=== PATIENT | male | born 1955 | race Caucasian/White ===

== ENCOUNTER 2018-06-28 09:47 | Emergency (ER) | payer SELFPAY ==
[~2018-06-28] VITALS: Ht 180.3 cm; Wt 95.0 kg
--- NOTE | 2018-06-28 09:56 | NUR ---
PT. ARRIVES BY [facility] WITH C/O RIGHT HIP PAIN. PT. AWOKE TODAY WITH RIGHT HIP, NO TRAUMA. PT. TOOK 800MG MOTRIN AND WENT BACK TO BED. UPON GETTING UP, PT. HAD CONTINUED SEVERE PAIN AND CALLED [facility]. [facility] G[facility] THE PT. 100 MCG OF F[place]ANYL. IV ACCESS WAS ESTABLISHED IN THE PT.'S LAC. PT.'S 12 LEAD EKG WAS DONE AND PT. WAS PLACED ON THE RESEARCH SCIENTIST. SATS ARE 98%. DISCUSSED PAIN MANAGEMENT WITH THE PROVIDER CHEN Miranda. PT. HAS THE SIDERAILS UP X 2 AND THE CALL LIGHT IS IN PLACE. REPORT TO THE PRIMARY CARE RN MERT.
[2018-06-28] MEDS ORDERED: ONDANSETRON 2MG/ML, 2ML ONE (09:57)
[2018-06-28] MEDS ORDERED: MORPHINE SULFATE 4 MG/ML, 1ML ONE ×2 (09:58→10:20)
[2018-06-28] MEDS ORDERED: ONDANSETRON 2MG/ML, 2ML IVPush ONE (10:00)
[2018-06-28] MEDS ORDERED: SODIUM CHLORIDE FLUSH 10ML SYR IVF ONE (10:00)
[2018-06-28] MEDS: MORPHINE SULFATE 4 MG/ML, 1ML IVPush PRN ×2 (10:03→10:22)
--- NOTE | 2018-06-28 10:12 | NUR ---
MEDICATED WITH MORPHINE AND ZOFRAN PER ORDERS, PT SCREAMING AND YELLING. INSTRUCTED TO DEEP BREATH EXERCISES. PT PLACED ON SHINGLE TRIMMER, SINUS, CALMER AFTER MEDICATION GIVEN. TO X RAY VIA GURNEY
--- NOTE | 2018-06-28 10:22 | NUR ---
PT BACK FROM XRAY SCREAMING AND MOVING AROUND. RE-MEDICATED PER ORDERS.
[2018-06-28] MEDS ORDERED: HYDROmorphone 2 MG/ML, 1ML ONE ×3 (10:33→11:58)
[2018-06-28 10:36] LABS: BASOPHILS # (AUTO) 0.05 x10^3/uL (0-0.1); BASOPHILS % (AUTO) 1 % (0-1); EOSINOPHILS # (AUTO) 0.26 x10^3/uL (0-0.4); EOSINOPHILS % (AUTO) 3 % (1-7); LYMPHOCYTES % (AUTO) 12 % (22-44); MD NO; MEAN CORPUSCULAR HEMOGLOBIN 31.7 pg (27.5-34.5); MEAN CORPUSCULAR HGB CONC 34.5 g/dL (33.2-36.2); MEAN CORPUSCULAR VOLUME 91.9 fL (81-97); MEAN PLATELET VOLUME 8.3 fL (7.4-10.4); MONOCYTES # (AUTO) 0.79 x10^3/uL (0.2-0.8); MONOCYTES % (AUTO) 9 % (2-9); NEUTROPHILS # (AUTO) 6.63 x10^3/uL (1.8-6.8); NEUTROPHILS % (AUTO) 75 % (42-75); PLATELET COUNT 359 x10^3/uL (130-400); RED BLOOD COUNT 4.67 x10^6/uL (4.38-5.82); RED CELL DISTRIBUTION WIDTH 13.6 % (9.4-14.8)
[2018-06-28] MEDS ORDERED: LOSA100T14 PO (10:39)
--- NOTE | 2018-06-28 10:39 | NUR ---
PT SCREAMING, AND MOVING AROUND,STATES PAIN IS STILL 10/[address] LAI ORDERS MEDICATED WITH DILAUDID.
[2018-06-28 10:46] LABS: ALBUMIN 3.6 g/dL (3.4-5.0); ANION GAP 11 mmol/L (5-15); CHLORIDE 105 mmol/L (98-107); CREATININE 0.96 mg/dL (0.7-1.3)
[2018-06-28 10:48] LABS: CREATINE KINASE, TOTAL 247 U/L (39-308)
[2018-06-28] MEDS ORDERED: HYDROmorphone 2 MG/ML, 1ML IV ONE (11:00)
--- NOTE | 2018-06-28 11:07 | NUR ---
PT CONTINOUS TO HAVE PAIN 12/04 [address] LAI ORDER FOR ADDITIONAL PAIN MEDICATION
[2018-06-28] MEDS: HYDROmorphone 2 MG/ML, 1ML IVPush PRN ×2 (11:10→12:03)
--- NOTE | 2018-06-28 11:21 | NUR ---
PT WATCHING TV, STATES PAIN IS STILL 10/10, NOT SCREAMING OR MOVING AROUND. PULSE OX ON AT 88%, PLACED ON 2 LNC, CYCLE BP, WINDSCREEN FITTER SINUS
--- NOTE | 2018-06-28 11:55 | NUR ---
TASK RN: LATE ENTRY FOR 1145: STATING PT HAS TO USE RESTROOM. PT GIVEN URINAL. PT RUDE AND STATES "OH GOD!! ARE YOU KIDDING ME!!" PT EDUCATED REGARDING THE USE FOR A URINAL.
[2018-06-28] MEDS ORDERED: OMNIPAQUE 350 MG/ML, 100ML BOTTLE ONE (11:56)
--- NOTE | 2018-06-28 12:02 | NUR ---
PT C/O OF INCREASE PAIN OVER 10/10, REMEDICATED WITH DILAUDID PER ORDERS.
--- NOTE | 2018-06-28 12:47 | NUR ---
OBTAINED URINE FOR UA SENT TO LAB. PT STATES PAIN IS "BETTER. NOW I AM SLEEPY". WATER GIVEN VERBALIZED NO OTHER NEEDS, AT BS
[2018-06-28 13:13] LABS: MICROSCOPIC AUTO
[2018-06-28 13:15] LABS: CULTURE INDICATED? NO
[2018-06-28 13:31] VITALS: BP 148/71
--- NOTE | 2018-06-28 13:48 | NUR ---
Patient/Caregiver given discharge instructions and they have confirmed that they understand the instructions. Patient ambulatory with steady gait. Patient signed out AMA.
[2018-06-28 14:08] LABS: HCT (SEDRATE) 42.9 % (39.2-51.8)
== END 2018-06-28 13:49 | disposition left against medical advice (07) ==
LOC: ED 11:33
DX: M25.551 Pain in right hip (principal); F17.210 Nicotine dependence, cigarettes, uncomplicated; I10 Essential (primary) hypertension
CPT/HCPCS: 36415; 71045; 71275; 73502; 74174; 80048; 81001; 82040; 82550; 83605; 85025; 85379; 85651; 86140; 93005; 96374; 96375; 96376; 99284; J1170; J2405; Q9967